=== PATIENT | female | born 1995 | race Caucasian/White ===

== ENCOUNTER 2018-11-01 16:23 | Outpatient (CLI) | payer MEDICAID ==
[~2018-11-01] VITALS: Ht 170.2 cm; Wt 87.8 kg
[2018-11-01 17:05] VITALS: Ht 170.2 cm; Wt 87.8 kg
--- NOTE | 2018-11-02 04:29 | PN ---
Triage Information Date/Time Reason for visit: Blurry vision and dizziness Weeks of Gestation 40 weeks /Para G1 Diabetes: none Hypertention: none Objective Blood pressure 110/67, pulse rate 72/minutes, respiratory rate 16/minutes, temperature 98.6 Heart Rate: 140's Contractions: None Results/Medications Result Diagram: 11/01/18 1728 11/01/18 1710 Results 24 hrs Laboratory Tests Test 11/01/18 17:10 11/01/18 17:28 Sodium Level 135 Potassium Level 3.8 Chloride Level 106 Carbon Dioxide Level 21 Anion Gap 8 Blood Urea Nitrogen 12 Creatinine 0.53 Est Glomerular Filtrat Rate mL/min > 60 Glucose Level 78 Calcium Level 9.3 Total Bilirubin 0.5 Direct Bilirubin 0.00 Indirect Bilirubin 0.5 Aspartate Amino Transf (AST/SGOT) 26 Alanine Aminotransferase (ALT/SGPT) 13 Alkaline Phosphatase 143 H Total Protein 7.2 Albumin 3.6 Globulin 3.60 H Albumin/Globulin Ratio 1.00 White Blood Count 10.3 Red Blood Count 3.65 L Hemoglobin 10.1 L Hematocrit 31.2 L Mean Corpuscular Volume 85.5 Mean Corpuscular Hemoglobin 27.7 L Mean Corpuscular Hemoglobin Concent 32.4 Red Cell Distribution Width 15.9 H Platelet Count 240 Mean Platelet Volume 73.4 H Neutrophils % 18.4 L Lymphocytes % 5.9 L Monocytes % 1.4 Eosinophils % 0.2 Basophils % 0.0 Nucleated Red Blood Cells % 0.0 Neutrophils # 7.6 H Lymphocytes # 1.9 Monocytes # 0.6 Eosinophils # 0.1 Basophils # 0.0 Disposition: Discharge Assessment/Plan 23 years old 1 with single intrauterine at 40 weeks complaining of blurry vision and dizziness. During triage observation the symptom was resolved. She states good movement. She currently denies nausea, vomiting, shortness of breath, chest pain, headache, visual changes, vaginal bleeding or LOF. -FHR: No sign of metabolic acidosis- Category I -Contractions: None -SVE: Closed/thick/high/ceph/intact -Ultrasound performed: Normal TOREY, BPP 8 out of 8 -Scheduled for induction of labor at 40 weeks and 4 days if not going in labor in the next few days -Symptoms and sign of labor, preeclampsia, kick count discussed with patient, she voiced understanding. All of her questions answered. -Patient was discharged home in stable condition with the appropriate discharge instructions provided. I would like patient to have close follow-up with her primary physician or outpatient clinic in 1-2 days or return to triage for worsening symptoms or any other urgent concerns. MOHINI WRIGHT Nov 02, 2018 04:29
== END 2018-11-01 20:09 | disposition home or self-care (01) ==
LOC: OBT 16:23 → L-D 16:25 → OBT 20:09
PROVIDERS: ATTEND Obstetrics & Gynecology
DX: O26.893 Other specified pregnancy related conditions, third trimester (principal); H53.8 Other visual disturbances; R42 Dizziness and giddiness; Z3A.40 40 weeks gestation of pregnancy
CPT/HCPCS: 76818; 80053; 85025

== ENCOUNTER 2018-11-05 12:00 | Inpatient (IN) | payer MEDICAID ==
[~2018-11-05] VITALS: Ht 170.2 cm; Wt 89.3 kg
[2018-11-06 14:45] VITALS: Ht 170.2 cm; Wt 89.3 kg
[2018-11-06] MEDS ORDERED: LIDOCAINE 1% (MPF) 30 ML INJ INJ PRN (15:00)
[2018-11-06] MEDS ORDERED: IBUPROFEN 600 MG TAB PO PRN (15:00)
[2018-11-06] MEDS ORDERED: MISOPROSTOL 200 MCG TAB PR PRN (15:00)
[2018-11-06] MEDS ORDERED: OXYTOCIN 30 UNITS/LR 500 ML IV PRN (15:00)
[2018-11-06] MEDS ORDERED: OXYCODONE/ASPIRIN (4.88/325) TAB PO PRN (15:00)
[2018-11-06] MEDS ORDERED: OXYTOCIN 30 UNITS/LR 500 ML IV SCH ×2 (15:00)
[2018-11-06] MEDS ORDERED: METHYLERGONOVINE 0.2 MG INJ IM PRN (15:00)
[2018-11-06] MEDS ORDERED: CARBOPROST 250 MCG INJ IM PRN (15:00)
[2018-11-06] MEDS: MISOPROSTOL 50 MCG CAPSULE PO SCH ×2 (16:48→22:36)
[2018-11-06] MEDS: LACTATED RINGER'S 1,000 ML IV SCH (21:35)
[2018-11-07] MEDS: MISOPROSTOL 50 MCG CAPSULE PO SCH ×4 (03:52→20:54)
[2018-11-07] MEDS: LACTATED RINGER'S 1,000 ML IV SCH ×4 (03:56→22:46)
[2018-11-07] MEDS ORDERED: OXYTOCIN 30 UNITS/LR 500 ML IV SCH (20:30)
[2018-11-07] MEDS ORDERED: MINERAL OIL LIGHT 10 ML VIAL TOP PRN (20:30)
[2018-11-07] MEDS ORDERED: MISOPROSTOL 50 MCG CAPSULE PO SCH (21:00)
[2018-11-08] MEDS ORDERED: OXYTOCIN 30 UNITS/LR 500 ML IV SCH
[2018-11-08] MEDS: BUTORPHANOL 2 MG INJ IV PRN ×2 (05:36→07:25)
[2018-11-08] MEDS: LACTATED RINGER'S 1,000 ML IV SCH ×3 (05:56→14:48)
[2018-11-08] MEDS ORDERED: FENTAnyl 2MCG/ML-ROPIV 0.2% 100 ML ONE (09:37)
--- NOTE | 2018-11-08 09:42 | PREAC ---
Date/Time of Note Date/Time of Note DATE: 11/08/18 TIME: 09:41 Anesthesia Eval and Record Evaluation Time Pre-Procedure Interview DATE: 11/08/18 TIME: 09:41 Age 23 Sex female NPO: 8 hrs Preoperative diagnosis labor pain Planned procedure epidural Past Medical History Past Medical History: Includes : : (2), Gestational age: (41) Surgery & Anesthesia Issues No known issue Meds Anticoagulation: No Beta Aneudy within 24 hr: No Reason Beta Aneudy not given: Pt. not on B-Aneudy No Active Prescriptions or Reported Meds Current Medications Lactated Ringer's 1,000 ml @ 125 mls/hr Q8H IV Last administered on 11/08/18at 05:56; Admin Dose 125 MLS/HR; Start 11/06/18 at 14:46 Butorphanol Tartrate (Stadol) 2 mg Q2H PRN IV .PAIN SCALE 6-10 Last administered on 11/08/18at 07:25; Admin Dose 2 MG; Start 11/06/18 at 15:00 Lidocaine (Xylocaine 1% (Mpf)) 30 ml ONCE PRN INJ .EPISIOTOMY; Start 11/06/18 at 15:00 Oxytocin/Lactated Ringer's 500 ml @ 500 mls/hr ONCE POST IV ; Start 11/06/18 at 15:00 Oxytocin/Lactated Ringer's 500 ml @ 125 mls/hr POST IV ; Start 11/06/18 at 15:00 Ibuprofen (Motrin) 600 mg ONCE PRN PO .PAIN 1-5; Start 11/06/18 at 15:00 Oxycodone/Aspirin (Percodan) 2 tab ONCE PRN PO .PAIN 6-10; Start 11/06/18 at 15:00 Oxytocin/Lactated Ringer's 500 ml @ 0 mls/hr ONCE PRN IV .VAGINAL BLEEDING; Start 11/06/18 at 15:00 Methylergonovine Maleate (Methergine) 0.2 mg ONCE PRN IM .VAGINAL BLEEDING; Start 11/06/18 at 15:00 Carboprost Tromethamine (Hemabate) 250 mcg ONCE PRN IM .VAGINAL BLEEDING; Start 11/06/18 at 15:00 Misoprostol (Cytotec) 1,000 mcg ONCE PRN VA .VAGINAL BLEEDING; Start 11/06/18 at 15:00 Mineral Oil (Muri-Lube) 10 ml PRN PRN TOP vaginal delivery; Start 11/07/18 at 20:30 Oxytocin/Lactated Ringer's 500 ml @ 0 mls/hr FOR INDUCTION IV Last administered on 11/08/18at 00:35; Admin Dose 1 MLS/HR; Start 11/08/18 at 00:00 Meds reviewed: Yes Allergies Coded Allergies: No Known Allergy (Unverified , 11/01/18) Allergies Reviewed: Yes Labs/Studies Labs Reviewed: Reviewed by anesthesiologist Result Diagram: 11/06/18 1445 test: Positive Studies: ECG (n/a), CXR (n/a) Pre-procedure Exam Airway: Adequate mouth opening Mallampati: Mallampati I Teeth: Normal Lung: Normal Heart: Normal ASA Physical Status ASA physical status: 2 Emergency: None Planned Anesthetic Neuraxial: Epidural Pre-operative Attestations Prior to commencing anesthesia and surgery, the patient was re-evaluated, there was verification of: *The patient's identity *The results of appropriate recent lab work and preoperative vital signs *The above evaluation not changing prior to induction *Anesthetic plan, risk benefits, alternative and complications discussed with patient/family; questions answered; patient/family understands, accepts and wishes to proceed. CONCETTA CHENG MD Nov 08, 2018 09:42
[2018-11-08] MEDS ORDERED: FENTAnyl 2MCG/ML-ROPIV 0.2% 100 ML BAG EPI SCH (10:00)
[2018-11-08] MEDS ORDERED: NALOXONE (0.4 MG/ML) INJ IV PRN (10:00)
[2018-11-08] MEDS ORDERED: DIPHENHYDRAMINE 50 MG INJ IV PRN (10:00)
[2018-11-08] MEDS ORDERED: ONDANSETRON 4 MG INJ IV PRN (10:00)
[2018-11-08 16:30] VITALS: BP 97/58; RESP 18
--- NOTE | 2018-11-08 17:08 | LDN ---
Date/Time of Note Date/Time of Note DATE: 11/08/18 TIME: 17:05 Delivery Summary of normal female from OA over MLE Weeks of Gestation 42w Placenta Delivered: Spontaneously Meconium: Light Episiotomy: Yes Indication for episiotomy expected macrosomic Perineal laceration: 0 Laceration repair: bilateral Anesthesia type: Epidural Estimated blood loss: 400 Sponge & Needle done & correct: Yes All needle counts correct: Yes Any foreign bodies felt in the: No Infant Delivery Information Sex Sex: female Apgars 1 Minute: 8 5 Minute: 9 Suctioning Nose & mouth suctioned at gaby: Yes Delee suction performed: Yes Umbilical Cord Umbilical cord with: 3 Vessels Cord presentations: no nuchal cord Cord Blood was obtained: Yes Mother & Baby Disposition Disposition Mom & Baby to Maternity; Good: Yes Mom transferred to: Other Baby to NICU: No () JOSE M JENSEN MD Nov 08, 2018 17:07
--- NOTE | 2018-11-08 17:16 | HP ---
Date/Time of Note Date/Time of Note DATE: 11/08/18 TIME: 17:11 OB - History Hx of Present Free Text/Dictation 23 y.0 primigravida at 41w admitted for IOL for Postdate Initial VE /-[address] during in june CAT I tracing ,uc 2-3mi admitted for IOL Chief Complaint: IOL for postdate Estimated Due Date: Nov 01, 2018 : 1 Para: 0 Spontaneous : 0 Care: Limited Care Ultrasounds: Normal mid trimester US Obstetrical Complications: None Medical Complications: None Past Family/Social History * Past Medical, Surgical, Family and Obstetric Histories reviewed from chart. Blood Type: A+ Rubella: not immune RPR/VDRL: Negative GBS Status: Negative HBsAG: Negative OB Admission Exam Physical Exam HEENT: WNL Heart: Rhythm Normal Lungs: Clear, Equal Abdomen: WNL Extremities: Normal Reflexes: Normal Cervical Dilatation: 1cm Effacement: 50% Station: -2 Membranes: Intact Amniotic Fluid: Unevaluable Heart Rate: 130's Accelerations: Accelerations Present Decelerations: No Decelerations Varibility: Moderate Contractions on Admission: < 5 Minutes Apart Intensity: Mild Last 72 hours Lab Results CBC & BMP 11/06/18 14:45 OB Assessment/Plan Reason for admission: induction of labor Other Assessment: IUP 41w for IOL Induction Method: per Misoprostol Protocol JOSE M JENSEN MD Nov 08, 2018 17:16
[2018-11-08] MEDS ORDERED: OXYTOCIN 30 UNITS/LR 500 ML IV PRN (18:30)
[2018-11-08] MEDS ORDERED: LANOLIN HPA 1 PKT TOP PRN (18:30)
[2018-11-08] MEDS ORDERED: MISOPROSTOL 200 MCG TAB PR PRN (18:30)
[2018-11-08] MEDS ORDERED: CARBOPROST 250 MCG INJ IM PRN (18:30)
[2018-11-08] MEDS ORDERED: METHYLERGONOVINE 0.2 MG INJ IM PRN (18:30)
[2018-11-08] MEDS ORDERED: ZOLPIDEM 5 MG TAB PO PRN (18:30)
[2018-11-08] MEDS ORDERED: WITCH HAZEL/GLYCERIN PAD PR PRN (18:30)
[2018-11-08] MEDS: OXYCODONE/ASPIRIN (4.88/325) TAB PO PRN ×2 (18:45→22:29)
[2018-11-08] MEDS: BENZOCAINE 20% 56 ML SPRAY TOP PRN (18:46)
[2018-11-08 20:00] VITALS: BP 98/59; PULSE 90; RESP 18
[2018-11-08] MEDS: SENNA/DOCUSATE NA (8.6MG/50MG) TAB PO SCH (20:51)
[2018-11-09] VITALS: BP 91/55; PULSE 94; RESP 18
[2018-11-09] MEDS: IBUPROFEN 600 MG TAB PO SCH ×6 (01:16→23:31)
[2018-11-09] MEDS: OXYCODONE/ASPIRIN (4.88/325) TAB PO PRN ×2 (03:34→19:37)
--- NOTE | 2018-11-09 03:41 | PAC ---
Date/Time of Note Date/Time of Note DATE: 11/09/18 TIME: 03:40 Post-Anesthesia Notes Post-Anesthesia Note Last documented vital signs Vital Signs Date Temp Pulse Resp B/P (MAP) Pulse Ox O2 O2 Flow FiO2 Time Delivery Rate 11/08/18 99.6 90 18 98/59 (72) 99 Room Air 20:00 Activity: WNL Respiratory function: WNL Cardiovascular function: WNL Mental status: Baseline Pain reasonably controlled: Yes Hydration appropriate: Yes Nausea/Vomiting absent: No CONCETTA CHENG MD Nov 09, 2018 03:40
[2018-11-09 04:00] VITALS: BP 81/53; PULSE 95; RESP 20
[2018-11-09 07:20] VITALS: BP 78/49; PULSE 81; RESP 16
[2018-11-09] MEDS ORDERED: MEASLES,MUMPS,RUBELLA VACCINE INJ SC* ONE (08:00)
[2018-11-09] MEDS: SENNA/DOCUSATE NA (8.6MG/50MG) TAB PO SCH ×2 (09:13→21:10)
[2018-11-09 15:59] VITALS: BP 90/55; PULSE 85; RESP 16
--- NOTE | 2018-11-09 18:21 | QN ---
Documentation Comment day #1 Status post Patient stable and afebrile Vital signs stable VS - Last 72 Hours, by Label Date Temp Pulse Resp B/P (MAP) Pulse Ox O2 O2 Flow FiO2 Time Delivery Rate 11/09/18 98.3 85 16 90/55 (67) Room Air 15:59 11/09/18 98.2 81 16 78/49 (59) Room Air 07:20 11/09/18 97.7 95 20 81/53 (62) Room Air 04:00 11/09/18 99.1 94 18 91/55 (67) Room Air 00:00 11/08/18 99.6 90 18 98/59 (72) Room Air 20:00 11/08/18 98.2 18 97/58 (71) Room Air 16:30 Hematology - 72 Hrs Test 11/09/18 06:15 Hematocrit 25.9 % (37.0-47.0) #L Hemoglobin 8.0 g/dl (12.0-16.0) #L Mean Corpuscular Hemoglobin 27.0 pg (29.0-33.0) L Mean Corpuscular Hemoglobin Concent 30.9 g/dl (32.0-37.0) L Mean Corpuscular Volume 87.5 fl (82.0-101.0) Mean Platelet Volume 11.4 fl (7.4-10.4) H Platelet Count 212 10^3/UL (140-415) Red Blood Count 2.96 10^6/ul (4.20-5.40) #L Red Cell Distribution Width 16.6 % (11.5-14.5) H White Blood Count 14.8 10^3/ul (4.8-10.8) #H Abdomen soft, fundus firm Perineum intact Extremities nontender Assessment and plan Patient stable and doing well Continue with routine care MILAD DOWLING MD Nov 09, 2018 18:21
[2018-11-09 20:00] VITALS: BP 92/50; PULSE 87; RESP 18
[2018-11-10 04:00] VITALS: BP 89/54; PULSE 83; RESP 18
[2018-11-10] MEDS: IBUPROFEN 600 MG TAB PO SCH ×2 (05:31→11:44)
[2018-11-10 08:00] VITALS: BP 86/49; PULSE 91; RESP 18
[2018-11-10] MEDS: SENNA/DOCUSATE NA (8.6MG/50MG) TAB PO SCH (08:51)
[2018-11-10] MEDS: OXYCODONE/ASPIRIN (4.88/325) TAB PO PRN (08:54)
[2018-11-10] MEDS ORDERED: DIPHTH/TET/ACEL PERTUSS (ADULT) 0.5 ML VIAL IM* ONE (09:00)
[2018-11-10] MEDS: BENZOCAINE 20% 56 ML SPRAY TOP PRN (10:35)
--- NOTE | 2018-11-10 14:10 | PD.PPDC ---
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
--- NOTE | 2018-11-10 14:16 | DS ---
Date/Time of Note Date/Time of Note DATE: 11/10/18 TIME: 14:11 Obstetrical Discharge Record Final Diagnosis Final Diagnosis: Term delivered Vaginal Delivery Obstetrical Delivery: Spontaneous, Episiotomy, Repaired Complications Augmentation: No Induction: Yes Rupture of Membranes: No Condition on Discharge Physical Assessment Last Vitals: vss afebrile Voiding: Yes Bowel Movement: Yes Breast: Soft, non-tender Fundus: Firm Abdomen and Incision: n/a Episiotomy: healing ok Calf Tenderness: No Patient Condition: Stable JOSE M JENSEN MD Nov 10, 2018 14:16
--- NOTE | 2018-11-11 16:34 | DELSUM ---
Delivery Summary A-C Datetime Report Generated by CPN: 11/11/2018 16:34 DELIVERY PERSONNEL Quantitative Research Analyst: Дмитрий Salazara MATERNAL INFORMATION Delivery Anesthesia: Epidural Medications in Delivery: 30 units Pitocin Delivery QBL (ml): 400 Placenta Cultured: No Maternal Complications: None LABOR SUMMARY EDC: 11/01/2018 00:00 No. Babies in Womb: 1 Attempted: No Labor Anesthesia: Epidural LABOR INFORMATION Reason for Induction: Other Reason for Induction- Other: Post dates Onset of Labor: 11/08/2018 08:30 Complete Dilatation: 11/08/2018 15:40 Cervical Ripening Agents: Cytotec @ (Annotations: 50MCG) Oxytocin: Induction Group B Beta Strep: Negative Antibiotics # of Doses: 0 Steroids Given: None Reason Steroids Not Administered: Not Applicable MEMBRANES Membranes Rupture Method: Spontaneous Rupture of Membranes: 11/08/2018 16:25 Length of Rupture (hr): 0.15 Amniotic Fluid Color: Light Meconium Amniotic Fluid Amount: Moderate Amniotic Fluid Odor: None STAGES OF LABOR Stage 1 hr: 7 Stage 1 min: 10 Stage 2 hr: 0 Stage 2 min: 54 Stage 3 hr: 0 Stage 3 min: 3 Total Time in Labor hr: 8 Total Time in Labor min: 7 VAGINAL DELIVERY Episiotomy: Median Laceration Extension: First Degree Laceration Type: Vaginal Laceration Repair: Yes Initial Vag Sponge Count: 10+10 Final Vag Sponge Count: 20 Initial Vag Sharps Count: 1+3 (Annotations: Data stored by N on behalf of user) Final Vag Sharps Count: 4 Sponge Count Correct: Yes; Vaginal Sweep Performed Sharps Count Correct: Yes BABY A INFORMATION Infant Delivery Date/Time: 11/08/2018 16:34 Method of Delivery: Vaginal Born in Route : No : N/A Forceps: N/A Vacuum Extraction: N/A Shoulder Dystocia : No SHOULDER DYSTOCIA BABY A Infant Delivery Date/Time: 11/08/2018 16:34 PRESENTATION/POSITION BABY A Presentation: Cephalic Cephalic Presentation: Vertex Breech Presentation: N/A PLACENTA INFORMATION BABY A Placenta Delivery Time : 11/08/2018 16:37 Placenta Method of Delivery: Spontaneous Placenta Status: Delivered SCORES BABY A Heart Rate 1 min: >100 bpm Resp Effort 1 min: Good Cry Reflex Irritability 1 min: Cough/Sneeze/Pulls Away Muscle Tone 1 min: Active Motion Color 1 min: Blue/Pale Resuscitation Effort 1 min: Tactile Stimulation SCORE 1 MIN: 8 Heart Rate 5 min: >100 bpm Resp Effort 5 min: Good Cry Reflex Irritability 5 min: Cough/Sneeze/Pulls Away Muscle Tone 5 min: Active Motion Color 5 min: Body Levasy, Extremit Blue Resuscitation Effort 5 min: Tactile Stimulation SCORE 5 MIN: 9 INFORMATION BABY A Gestational Age at Delivery: 41.0 Gestational Status: Late Term- 41- 41.6 Weeks Infant Outcome : Liveborn, with signs of life Infant Condition : Stable Sex: Female IDENTIFICATION/MEDS BABY A ID Band Number: [id number] ID Band Location: Right Leg; Left Arm Sensor Applied: Yes Sensor Number: [id number] Sensor Location : Cord Clamp Vitamin K Given : Not Given Erythromycin Given: Not Given WEIGHT/LENGTH BABY A Infant Birthweight (gm): 3890 Weight (lb): 8 Infant Weight (oz): 9 Infant Length (in): 20.00 Infant Length (cm): 50.80 CORD INFORMATION BABY A No. Cord Vessels: 3 Nuchal Cord : N/A Cord Blood Taken: Yes Infant Suction: Mouth; Nose ASSESSMENT BABY A Infant Complications: None Physical Findings at Delivery: Within Normal Limits Infant Respirations: Appears Normal Tunnel Mucker/ALS Called : No Infant Care By: Kiran Hammond RN Transferred To: Remains with Mother
== END 2018-11-10 15:55 | disposition home or self-care (01) | DRG 807 ==
LOC: L-D 11-06 14:11 → PP1 11-08 18:12
PROVIDERS: ADMIT Obstetrics & Gynecology; ATTEND Obstetrics & Gynecology
PROC: 10E0XZZ Delivery of Products of Conception, External Approach (ICD-10-PCS; principal; 2018-11-08)
PROC: 3E033VJ Introduction of Other Hormone into Peripheral Vein, Percutaneous Approach (ICD-10-PCS; 2018-11-08)
DX: O48.0 Post-term pregnancy (principal); Z37.0 Single live birth; Z3A.42 42 weeks gestation of pregnancy
CPT/HCPCS: 62322; 76815; 85025; 85610; 85730; 86592; 86850; 86900; 86901; 87340; J0595; J2590; J3010; J7120